=== PATIENT | male | born 1990 | race Caucasian/White ===

== ENCOUNTER 2023-10-17 21:43 | Emergency (ER) | payer BC ==
[2023-10-17 22:35] VITALS: PULSE 64; RESP 18; TEMP 98.1; O2SAT 100
[2023-10-17] MEDS ORDERED: MEDROL4 M2 PO (22:42)
== END 2023-10-17 23:53 | disposition home or self-care (01) ==
LOC: ER 22:23
DX: L23.7 Allergic contact dermatitis due to plants, except food (principal)
CPT/HCPCS: 99282

== ENCOUNTER 2023-10-31 22:04 | Emergency (ER) | payer BC ==
[~2023-10-31] VITALS: Ht 177.8 cm; Wt 87.1 kg
[~2023-10-31 22:04] MED LIST: MEDROL4 M2 PO
[2023-10-31 22:49] VITALS: PULSE 70; RESP 18; TEMP 98.8
[2023-10-31] MEDS ORDERED: ACYCLOVIR800 MG PO (22:53)
[2023-10-31] MEDS ORDERED: PREDNISONE20 MG PO (22:53)
[2023-11-01 00:26] VITALS: BP 142/90; PULSE 68; RESP 17; TEMP 98.4; O2SAT 100
== END 2023-11-01 00:28 | disposition home or self-care (01) ==
LOC: ER 22:11
DX: G51.0 Bell's palsy (principal); G91.9 Hydrocephalus, unspecified
CPT/HCPCS: 70450; 99283